=== PATIENT | female | born 1975 | race Caucasian/White ===

== ENCOUNTER 2024-12-21 08:49 | Outpatient (CLI) | payer BC, SELFPAY ==
--- OUTSIDE RECORDS SUMMARY | 2024-12-21 09:06 | XMS_ITS | Clinical Summary ---
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 Name Role Phone Sammy Garcia MD Primary Care Provider [phone] Allergies Active Allergy Reactions Criticality Noted Date Comments Codeine Nausea and Vomiting 01/12/2020 Medications HYDROcodone-acet aminophen (NORCO) 5-325 MG tablet Take 1 tablet by mouth every 6 hours as needed for severe pain 10 tablet 01/12/2020 Active Social History Tobacco Use Types Packs/Day Years Used Date Smoking Tobacco: Never Assessed Adolescent Education Answer Date Record ed Getting School Help Needed Not on file 04/06 Comments Unknown Sex and Gender Information Value Date Recorded Sex Assigned at Not on file Legal Sex Female 4:17 AM [employer] Gender Identity Not on file Sexual Orientation Not on file Last Filed Vital Signs Vital Sign Reading Time Taken Comments Blood Pressure 132/95 01/12/2020 9:30 AM CDT Pulse 76 01/12/2020 7:13 AM CDT Temperature 36.8 C (98.2 F) 01/12/2020 7:13 AM CDT Respiratory Rate 18 01/12/2020 7:13 AM CDT Oxygen Saturation 97% 01/12/2020 9:30 AM CDT Inhaled Oxygen Concentration - - Weight 72.6 kg (160 lb) 01/12/2020 7:13 AM CDT Height 172.7 cm (5' 8) 01/12/2020 7:13 AM CDT Body Mass Index 24.33 01/12/2020 7:13 AM CDT Plan of Treatment Not on file Care Teams Box Storage Worker Relationship Specialty Start Date End Date Sammy Garcia MD PCP - General Family Medicine - Sports Medicine 01/12/20
--- OUTSIDE RECORDS SUMMARY | 2024-12-21 09:06 | XMS_ITS | Clinical Summary ---
Author Organization [facility] Address [address] [place] [address] Care Team Providers Care Carpenter Repair Name Role Phone Sammy Garcia MD Primary Care Provider [phone] Allergies Active Allergy Reactions Criticality Noted Date Comments Codeine Nausea And Vomiting 05/12/2009 Medications gabapentin (NEURONTIN) 100 mg capsuleIndication s:Neck pain on right side Take 4 Capsules (400 mg) by mouth at bedtime. 360 Capsule 3 4 Active cyclobenzaprine (FLEXERIL) 10 mg tabletIndications :Neck pain on right side,Radicular pain in right arm TAKE 1 TABLET BY MOUTH UP TO 3 TIMES DAILY FOR SPASMS/BACK PAIN. USE MOSTLY AT NIGHT, MAY MAKE YOU DROWSY 30 Tablet 3 4 Active albuterol-ipratro pium (2.5-0.5 mg) in 3 mL NEBULIZATION solutionIndicatio ns:Acute cough Inhale 3 mL via a nebulizer every 6 hours if needed for Shortness Of Breath or Wheezing. 60 mL 3 5 Active NebulizerIndicati ons:Acute cough Nebulizer, disposable neb kit x 4, reuseable neb kit x 1, mask x 1, filters x 1. Frequency of use: daily; Medication: duoneb Length of need: 1 months 1 Each 5 Active Active Problems Problem Noted Date Diagnosed Date Chronic pain of right hip 11/11/2024 Overview (11/11/2024): October 2024: Ultrasound guided right hip injection. 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 Presbyopia 03/23/2020 Nutritional anemia 09/26/2015 ACNE 03/04/2003 Resolved Problems Problem Noted Date Diagnosed Date Resolved Date Nutritional anemia 09/25/2015 6 Generalized anxiety disorder 07/06/2010 01/29/2022 Major depressive disorder, s geovani episode, mild degree 07/06/2010 01/29/2022 INFECTION, UP RESPIRAT, BUNCHER MACHINE SITES, ACUTE NOS 06/20/2010 Cough 06/20/2010 Encounters Date Type Department Care Team Description 12/21/2024 Travel 11/30/2024 9:55 AM CDT Office Visit [facility] [address] [place] [address] Sammy Garcia MD Musculoskeletal Problem (Follow-up Post RIGHT Hip Injection done on 11/10/[address] Rosario/Does not feel the injection has helped at all) 11/30/2024 Telephone [facility] [address] [place] [address] Rubin Rosario MD Procedure (LAURA) 11/30/2024 Travel 11/10/2024 9:00 AM CDT Procedure Only [facility] [address] [place] [address] Rubin Rosario MD Procedure (US guided right hip joint injec... 11/10/2024 Travel 10/06/2024 Telephone [facility] [address] [place] [address] Abilio Ramos MD Results 10/05/2024 3:25 PM CDT Office Visit [facility] [address] [place] [address] Abilio Ramos MD URI (Now going on 3 weeks. Severe fatigue, throat feels tight, body feels wore out but she can't sleep) 10/05/2024 Travel 10/04/2024 Travel 09/28/2024 Telephone [facility] [address] [place] [address] Lv Bowen MD DME Supply 09/24/2024 9:00 AM CDT Office Visit [facility] [address] [place] [address] Lv Bowen MD URI (Dry cough, ongoing for over one week) 09/23/2024 Travel from Last 3 Months Immunizations Immunization Administration Dates Next Due Influenza,LAIV4 Live Intranasal (Flumist) 2010,05/31/2009 Tdap 06/12/2011 Family History Medical History Relation Name Comments Cancer-breast No Family History Relation Name Status Comments Brother 1 Alive Brother 2 Alive Daughter 1 Alive Daughter 2 Alive Father (Age 30 yrs) car ac cident Maternal Grandfather 1 Maternal Grandfather 2 Maternal Grandmother Mother Alive Paternal Grandfather Paternal Grandmother Sister Alive half Son 1 Alive Son 2 Alive Social History Tobacco Use Types Packs/Day Years Used Date Smoking Tobacco: Never Smokeless Tobacco: Never Tobacco Cessation:Counseling Given: Yes Alcohol Use Standard Drinks/Week Comments No 0 (1 standard drink = 0.6 oz pur e alcohol) sober since 2010. PHQ-2 Answer Date Recorded PHQ-2 TOTAL SCORE 0 01/29/2022 Social Connections Answer Date Recorded Do you often feel lonely or isolated from those around you? 0 05/07/2024 Financial Resource Strain Answer Date R ecorded Difficulty of Paying Living Expenses 3 05/07/2024 Difficulty of Paying Living Expenses Not on file 05/07/2024 Food Insecurity Answer Date Recorded Do you worry your food will run out before you are able to buy more? 1 05/07/2024 Transportation Needs Answer Date Record ed Does lack of transportation keep you from medica l appointments? 1 05/07/2024 Does lack of transportation keep you from work, meetings or getting things that you need? 1 05/07/2024 Housing Stability Answer Date Recorded What is your housing situation today? 1 05/07/2024 Utilities Answer Date Recorded Do you have trouble paying f or utilities (for example, heat, electricity, water, phone)? 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 Not on fi le Not on file Obstetrics History Para Term AB IAB SAB Ectopic Multiple Livin g Live Births 5 4 4 0 1 0 1 0 0 4 Date Outcome GA Total Labor Labor/2nd/3rd Weight Sex Type Anes PTL Zakia A1 A5 Name Clin Term Term Term Term SAB Last Filed Vital Signs Vital Sign Reading Time Taken Comments Blood Pressure 120/86 11/30/2024 9:49 AM CDT Pulse 80 11/30/2024 9:49 AM CDT Temperature 37 C (98.6 F) 11/10/2024 8:55 AM CDT Respiratory Rate 20 10/20/2012 9:54 AM CDT Oxygen Saturation 97% 11/30/2024 9:49 AM CDT Inhaled Oxygen Concentration - - Weight 86 kg (189 lb 11.2 oz) 11/30/2024 9:49 AM CDT Height 171.5 cm (5' 7.5) 05/07/2024 12:07 PM CS T Body Mass Index 29.27 05/07/2024 12:07 PM STEAMING CABINET TENDER Plan of Treatment Upcoming Encounters Date Type Department Care Team (Late st Contact Info) Description 01/11/2025 10:20 AM CDT Office Visit [facility] [address] [place] [address] Sammy Garcia MD [address] [place] [address] Health Maintenance Due Date Last Done Comments HIV for age 15-65 1988 Hepatitis B series for 19+ ( 1 of 3 - 19+ 3-dose series) 1992 Tetanus booster 06/12/2021 06/12/2011 Mammogram for age 45-75 11/21/2022 11/22/19 22, 10/20/2020, 10/12/2020 Depression screening for age 12+ 01/29/2023 01/29/2022, 11/15/2021, 06/05/2020, Additional history exists Pneumococcal series for age 50+ (1 of 1 - PCV) 2023 Zoster (shingles) series for age 50+ (1 of 2) 2023 COVID-19 vaccine series (1 - season) 2024 Influenza Vaccine (Season Ended) 2025 06/04/20 11, 05/31/2009 BMI (ht and wt on same day) for age 18+ 05/07/2025 05/07/2024, 02/11/2023, 01/29/2022, Additional history exists Fecal testing sDNA-FIT ([place] guard) for age 45-75 03/07/2026 03/07/2023 Lipids for age 45-75 01/29/2027 01/29/2022, 05/31/20 09 Pap test for age 21-65 01/29/2027 , 01/29/2022, 05/31/2009, Additional history exists Tdap Completed 06/12/2011 Hepatitis C screening for ag e 18-79 Completed 01/29/2022 Procedures Procedure Name Priority Date/Time Associated Diagnosis Comments AMB EPIDURAL STEROID INJECTION Routine 12/21/2024 7:58 AM CDT Chronic right hip pain Tear of right acetabular labrum, subsequent encounter Degeneration of intervertebral disc of lumbar region with discogenic back pain and lower extremity pain BEDSIDE US STUDY ARCHIVE Routine 11/10/2024 10:07 AM CDT Tear of right acetabular labrum, subsequent encounter Chronic right hip pain CBC WITH AUTO DIFFERENTIAL Routine 10/05/2024 3:53 PM CDT Fatigue, unspecified type TSH Routine 10/05/2024 3:53 PM CDT Fatigue, unspecified type COMP METABOLIC PANEL Routine 10/05/2024 3:53 PM CDT Fatigue, unspecified type VITAMIN B12 Routine 10/05/2024 3:53 PM CDT Fatigue, unspecified type VITAMIN D 25 (DEFICIENCY) Routine 10/05/2024 3:53 PM CDT Vitamin D deficiency C-REACTIVE PROTEIN Routine 10/05/2024 3: 53 PM CDT Fever, unspecified fever cause HEMOGLOBIN A1C Routine 10/05/2024 3:53 PM CDT Fatigue, unspecified type Blurry vision, bilateral SDNA-FIT EXTERNAL (COLOGUARD) Routine 03/07/2023 9:42 AM CDT Screen for colon cancer ANTI HCV Routine 01/29/2022 10:25 AM CDT Need for hepatitis C screening test LIPID PANEL W REFLEX MEASURED LDL Routine 01/29/2022 10:25 AM CDT Screening for lipid disorders GRANITE CUTTER THIN PREP PAP SCREEN IMAGED Routine 01/29/2022 10:14 AM CDT Pap smear for cervical cancer screening XR MAMMO BILAT SCREENING Routine 11/21/2021 11:48 AM CDT Encounter for screening mammogram for malignant neoplasm of breast from Last 3 Months or Most Recently Relevant to Health Maintenance Results * BEDSIDE US STUDY ARCHIVE (11/10/2024 10:07 AM CDT) Narrative Holly Sánchez R.T. (ARRT) - 11/10/2024 10:07 AM CDT The patient was seen for ultrasound guided injection by Dr. Rubin Rosario. Ultrasound was not used for diagnostic purposes, but to guide the needle placement and document the position of the injection. See patient's EPIC encounter for the detail of the procedure; see OSCAR for saved images of the injection. us Rubin Rosario MD PROCEDURE ORD Final Resu lt * (ABNORMAL) HEMOGLOBIN A1C (10/05/2024 3:53 PM CDT) HEMOGLOBIN A1C 5.7(H) <5.7 % of total Hgb [email or web address] Comment: For someone without known diabetes, a hemoglobin A1c value between 5.7% and 6.4% is consistent with prediabetes and should be confirmed with a follow-up test. For someone with known diabetes, a value <7% indicates that their diabetes is well controlled. A1c targets should be individualized based on duration of diabetes, age, comorbid conditions, and other considerations. This assay result is consistent with an increased risk of diabetes. Currently, no consensus exists regarding use of hemoglobin A1c for diagnosis of diabetes for children. Blood BLOOD SPECIMEN / Unknown 10/05/2024 3:53 PM CDT 10/05/2024 3:54 PM CDT us Abilio Ramos MD CHEMISTRY Final Resul t [employer] [facility] [address] [place] [address], [email or web address] [address] * VITAMIN D 25 (DEFICIENCY) (10/05/2024 3:53 PM CDT) VITAMIN D,25-OH,TOTAL,IA 57 30 - 100 ng/mL [email or web address] Comment: Vitamin D Status 25-OH Vitamin D: Deficiency: <20 ng/mL Insufficiency: 20 - 29 ng/mL Optimal: > or = 30 ng/mL For 25-OH Vitamin D testing on patients on D2-supplementation and patients for whom quantitation of D2 and D3 fractions is required, the QuestAssureD(TM) 25-OH VIT D, (D2,D3), LC/MS/MS is recommended: order code [id number] (patients >2yrs). See Note 1 Note 1 For additional information, please refer to http://education.Food.ee/faq/ZZD180 (This link is being provided for informational/ educational purposes only.) Blood BLOOD SPECIMEN / Unknown 10/05/2024 3:53 PM CDT 10/05/2024 3:54 PM CDT Abilio Ramos MD SEND OUTS Final Resul t [employer] [facility] [address] [place] [address], [place] [phone] [facility] [address] [place] [address] * TSH (10/05/2024 3:53 PM CDT) TSH 1.52 mIU/L [facility] Comment: Reference Range > or = 20 Years 0.40-4.50 Ranges First trimester 0.26-2.66 Second trimester 0.55-2.73 Third trimester 0.43-2.91 Blood BLOOD SPECIMEN / Unknown 10/05/2024 3:53 PM CDT 10/05/2024 3:54 PM CDT us Abilio Ramos MD CHEMISTRY Final Resul t Performing Organization Address City/[facility]/ZIP Co de Phone Number [employer] [facility] [address] [facility] [place] [address], [place] [phone] [facility] [address] [facility] [place] [address] * C-REACTIVE PROTEIN (10/05/2024 3:53 PM CDT) C-REACTIVE PROTEIN <3.0 <8.0 mg/L [email or web address] Blood BLOOD SPECIMEN / Unknown 10/05/2024 3:53 PM CDT 10/05/2024 3:54 PM CDT Abilio Ramos MD CHEMISTRY Final Resul t [employer] [facility] [address] [place] [address], [place] [phone] [email or web address] [address] [place] [address] * CBC AND DIFFERENTIAL (10/05/2024 3:53 PM CDT) [facility] WHITE BLOOD CELL COUNT 6.9 3.8 - 10.8 Thousand/u L [facility] RED BLOOD CELL COUNT 4.62 3.80 - 5.10 Million/uL [facility] HEMOGLOBIN 13.3 11.7 - 15.5 g/dL [facility] HEMATOCRIT 40.7 35.0 - 45.0 % [facility] MCV 88.1 80.0 - 100.0 fL [facility] MCH 28.8 27.0 - 33.0 pg [facility] MCHC 32.7 32.0 - 36.0 g/dL [facility] Comment: For adults, a slight decrease in the calculated MCHC value (in the range of 30 to 32 g/dL) is most likely not clinically significant; however, it should be interpreted with caution in correlation with other red cell parameters and the patient's clinical condition. RDW 12.7 11.0 - 15.0 % [facility] PLATELET COUNT 293 140 - 400 Thousand/u L [facility] MPV 11.1 7.5 - 12.5 fL [facility] ABSOLUTE NEUTROPHILS 3,540 1,500 - 7,800 cells/uL [facility] ABSOLUTE LYMPHOCYTES 2,560 850 - 3,900 cells/uL [facility] ABSOLUTE MONOCYTES 538 200 - 950 cells/uL [facility] ABSOLUTE EOSINOPHILS 214 15 - 500 cells/uL [facility] ABSOLUTE BASOPHILS 48 0 - 200 cells/uL [facility] NEUTROPHILS 51.3 % [facility] LYMPHOCYTES 37.1 % [facility] MONOCYTES 7.8 % [facility] EOSINOPHILS 3.1 % [facility] BASOPHILS 0.7 % [facility] Blood BLOOD SPECIMEN / Unknown 10/05/2024 3:53 PM CDT 10/05/2024 3:54 PM CDT us Abilio Ramos MD HEMATOLOGY Final Resul t [facility] [address] [place] [address], [place] [phone] [facility] [address] [place] [address] * VITAMIN B12 (10/05/2024 3:53 PM CDT) Pathologist [facility] VITAMIN B12 724 200 - 1,100 pg/mL [facility] Blood BLOOD SPECIMEN / Unknown 10/05/2024 3:53 PM CDT 10/05/2024 3:54 PM CDT Abilio Ramos MD CHEMISTRY Final Resul t Performing Organization Address [facility]/ZIP Co de Phone Number [facility] [place] [address] [place] [address], [place] [phone] [facility] [address] [place] [address] * COMP METABOLIC PANEL (10/05/2024 3:53 PM CDT) Pathologist [facility] GLUCOSE 85 65 - 99 mg/dL [facility] Comment: Fasting reference interval UREA NITROGEN (BUN) 13 7 - 25 mg/dL [facility] CREATININE 0.89 0.50 - 1.03 mg/dL [facility] EGFR 78 > OR = 60 mL/min/1. 73m2 [facility] BUN/CREATININE RATIO SEE NOTE: 6 - 22 (calc) [facility] Comment: Not Reported: BUN and Creatinine are within reference range. SODIUM 138 135 - 146 mmol/L [facility] POTASSIUM 4.7 3.5 - 5.3 mmol/L [facility] CHLORIDE 101 98 - 110 mmol/L [facility] CARBON DIOXIDE 31 20 - 32 mmol/L [facility] CALCIUM 9.0 8.6 - 10.4 mg/dL [facility] PROTEIN, TOTAL 7.0 6.1 - 8.1 g/dL [facility] ALBUMIN 4.4 3.6 - 5.1 g/dL [facility] GLOBULIN 2.6 1.9 - 3.7 g/dL (calc) [facility] ALBUMIN/GLOBULIN RATIO 1.7 1.0 - 2.5 (calc) [facility] BILIRUBIN, TOTAL 0.3 0.2 - 1.2 mg/dL [facility] ALKALINE PHOSPHATASE 57 37 - 153 U/L [facility] AST 17 10 - 35 U/L [facility] ALT 20 6 - 29 U/L [facility] Blood BLOOD SPECIMEN / Unknown 10/05/2024 3:53 PM CDT 10/05/2024 3:54 PM CDT us Abilio Ramos MD CHEMISTRY Final Resul t [employer] [facility] [address] [place] [address], [facility] [address] * SDNA-FIT EXTERNAL (COLOGUARD) (03/07/2023 9:42 AM CDT) NONINV COLON CA DNA+OCC BLD SCRN STL-IMP Negative Negative 03/12/2023 4:57 PM CDT [facility] (CLIA #:[id number]) Comment: NEGATIVE TEST RESULT. A negative Cologuard result indicates a low likelihood that a colorectal cancer (CRC) or advanced adenoma (adenomatous polyps with more advanced pre-malignant features) is present. The chance that a person with a negative Cologuard test has a colorectal cancer is less than 1 in 1500 (negative predictive value >99.9%) or has an advanced adenoma is less than 5.3% (negative predictive value 94.7%). These data are based on a prospective cross-sectional study of 10,000 individuals at average risk for colorectal cancer who were screened with both Cologuard and colonoscopy. (Vidal Adamson al, N Engl J Med 2014;370(14):8568-9380) The normal value (reference range) for this assay is negative. COLOGUARD RE-SCREENING RECOMMENDATION: Periodic colorectal cancer screening is an important part of preventive healthcare for asymptomatic individuals at average risk for colorectal cancer. Following a negative Cologuard result, the [place] [employer] Society and U.S. Multi-Society Task Force screening guidelines recommend a Cologuard re-screening interval of 3 years. References: [place] [employer] Guideline for Colorectal Cancer Screening: https://www.cancer.org/cancer/fossh-pbutgb-denerc/veewxgxwo-mumavkvnx-mlwvijg/ac s-rec ommendations.html.; Navdeep DK, Mendez CR, Michael CraigK, Colorectal Cancer Screening: Recommendations for Physicians and Patients from the U.S. Multi-Society Task Force on Colorectal Cancer Screening , Am J Gastroenterology 2017; 112:3660-3974. TEST DESCRIPTION: Composite algorithmic analysis of stool DNA-biomarkers with hemoglobin immunoassay. Quantitative values of individual biomarkers are not reportable and are not associated with individual biomarker result reference ranges. Cologuard is intended for colorectal cancer screening of adults of either sex, 45 years or older, who are at average-risk for colorectal cancer (CRC). Cologuard has been approved for use by the U.S. FDA. The performance of Cologuard was established in a cross sectional study of average-risk adults aged 50-84. Cologuard performance in patients ages 45 to 49 years was estimated by sub-group analysis of near-age groups. Colonoscopies performed for a positive result may find as the most clinically significant lesion: colorectal cancer [4.0%], advanced adenoma (including sessile serrated polyps greater than or equal to 1cm diameter) [20%] or non- advanced adenoma [31%]; or no colorectal neoplasia [45%]. These estimates are derived from a prospective cross-sectional screening study of 10,000 individuals at average risk for colorectal cancer who were screened with both Cologuard and colonoscopy. (Vidal Yap, N Engl J Med 2014;370(14):1982-3932.) Cologuard may produce a false negative or false positive result (no colorectal cancer or precancerous polyp present at colonoscopy follow up). A negative Cologuard test result does not guarantee the absence of CRC or advanced adenoma (pre-cancer). The current Cologuard screening interval is every 3 years. ([place] [employer] Society and U.S. Multi-Society Task Force). Cologuard performance data in a 10,000 patient pivotal study using colonoscopy as the reference method can be accessed at the following location: www.Ensocare/results. Additional description of the Cologuard test process, warnings and precautions can be found at www.Glance Labsrd.com. Stool specimen (specimen) (Rectum) 03/07/2023 9:42 AM CDT 03/08/2023 2:51 PM CDT Leeanne Ramsey NP URINE Final Res ult [facility] (CLIA #:[id number]) [address] [place] [address], * (ABNORMAL) LIPID PANEL W REFLEX MEASURED LDL [[id number]] (01/29/2022 10:25 AM CDT) CHOLESTEROL,TOTAL 240(H) 100 - 199 mg/dL 01/29/2022 6:35 PM CDT [facility] TRIGLYCERIDES 108 <150 mg/dL 01/29/2022 6:35 PM CDT [facility] HDL CHOLESTEROL 67 >40 mg/dL 6:35 PM CDT [facility] NON-HDL CHOLESTEROL 173(H) <145 mg/dl 01/29/2022 6:35 PM CDT [facility] CHOL/HDL RATIO 3.58 <4.50 01/29/2022 6:35 PM CDT [facility] LDL CHOLESTEROL 151(H) <=130 mg/dL 01/29/2022 6:35 PM CDT [facility] VLDL CHOLESTEROL 22 <=30 mg/dL 01/29/2022 6:35 PM CDT [facility] TRA LABORATORY PROVIDER ORDERED STATUS RANDOM 01/29/2022 6:35 PM CDT [facility] Blood BLOOD SPECIMEN / Unknown Venipuncture / Unknown 01/29/2022 10:25 AM CDT 01/29/2022 10:35 AM CDT Leeanne Ramsey LEGAL EXECUTIVE ASSISTANT CHEMISTRY Final Res ult [facility] [address] [place] [address], [place] * ANTI HCV (01/29/2022 10:25 AM CDT) HEPATITIS C ANTIBODY Non-React corey Non-React corey 01/29/2022 8:24 PM CDT [facility] Comment:Antibodies to HCV no t detected; does not exclude the possibility of exposure to HCV. Blood BLOOD SPECIMEN / Unknown Venipuncture / Unknown 01/29/2022 10:25 AM CDT 01/29/2022 10:35 AM CDT Leeanne Ramsey LEGAL EXECUTIVE ASSISTANT SEND OUTS Final Res ult [facility] [address] [place] [address], [place] * GRANITE CUTTER THIN PREP PAP SCREEN IMAGED (01/29/2022 10:14 AM CDT) Case Report Gynecologic Cytology Report Case: [id number] Authorizing Provider: Leeanne Ramsey NP Collected: 01/29/2022 1014 Ordering Location: [facility] Received: 01/29/2022 1049 Clinic First Screen: Lashon Mccauley Specimen: GRANITE CUTTER ThinPrep Vial Screening, Cervical 02/12/2022 12:36 PM CDT [facility] ENTRAL LABORATORY INTERPRETATION/ RESULT NEGATIVE FOR INTRAEPITHELIAL LESION OR MALIGNANCY (NIL) (none) 02/12/2022 12:36 PM CDT [facility] at 1236 CDT SPECIMEN ADEQUACY Satisfactory for evaluation Endocervical component present 02/12/2022 12:36 PM CDT [facility] HPV REQUEST HPV and PAP 02/12/2022 12:36 PM CDT [facility] Date of LMP 01/21/22 02/12/2022 12:36 PM CDT [facility] Last Pap Date 05/31/09 02/12/2022 12:36 PM CDT [facility] Last Pap Result NIL 12:36 PM CDT [facility] Abnormal Pap or [place] Bx in last 5 years No 02/12/2022 12:36 PM CDT [facility] Menstrual Status Regular Periods 02/12/2022 12:36 PM CDT [facility] [place] Bx Done Today No 02/12/2022 12:36 PM CDT [facility] Additional Information None given 02/12/2022 12:36 PM CDT [facility] Comment: Cytology is screened at [facility] - [address], [place] [address] and [facility] - [address], [place] [address] and [facility] - [address] [place] [address] Interpreted at [facility] - [address], [place] [address] Automated Review Successful 02/12/2022 12:36 PM CDT [facility] Comment:Specimen processed s uccessfully by automated electric cell tender device, [employer] System, [employer] ANCILLARY TESTING GRANITE CUTTER HPV Ordered, Please see separate report 02/12/2022 12:36 PM CDT [facility] Note The pap test is a screening technique, not a diagnostic procedure. It is used primarily to screen for squamous cancers and precursor lesions. Published studies have shown that it is subject to both false negative and false positive results. The pap test should not be used as the sole means to diagnose or exclude pre-malignant and malignant lesions. 02/12/2022 12:36 PM CDT [facility]-C ENTRAL LABORATORY Other (Cervical) Non-Blood / Unknown 01/29/2022 10:14 AM CDT 01/29/2022 10:49 AM CDT Leeanne Ramsey NP PATHOLOGY/CYTOLOGY Final Result [facility]-CENTRAL LABORATORY [address] [place] [address], [place] * XR MAMMO BILAT SCREENING (11/21/2021 11:48 AM CDT) Anatomical Region Laterality Modality BREASTS, Breast Left, Breast Right Bilateral Mammography Impressions 11/21/2021 3:47 PM CDT There is no radiographic evidence for malignancy. Recommend annual mammograms. MAMMOGRAM ASSESSMENT: ACR 1 Negative PATIENTS: You will also receive a letter with your examination results in an easy to read format. If you have questions about your results, please contact your referring provider. Narrative 11/21/2021 3:47 PM CDT For Patients: As a result of the Century Cures Act, medical imaging exams and procedure reports are released immediately into your electronic medical record. You may view this report before your referring provider. If you have questions, please contact your health care provider. XR MAMMO BILAT SCREENING [[id number]] CLINICAL HISTORY: This is an asymptomatic 46 y.o. patient. INDICATION FOR EXAM: Mammogram Screening. TECHNIQUE: CC & MLO views were obtained. This study was evaluated with the assistance of Computer-Aided Detection. COMPARISON FILM: Yes 10/12/20 Concard FINDINGS: The breasts have scattered areas of fibroglandular density. There are no dominant masses, suspicious micro calcifications or areas of architectural distortion. Sammy Garcia MD MAMMO Final Res ult from Last 3 Months or Most Recently Relevant to Health Maintenance Insurance [facility] Care Teams Carpenter Repair Relationship Specialty Start Date End Date Sammy Garcia MD [address] [place] [address] PCP - General Family Practice 03/28/20
--- OUTSIDE RECORDS SUMMARY | 2024-12-22 00:45 | XMS_ITS | Clinical Summary ---
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
--- OUTSIDE RECORDS SUMMARY | 2024-12-22 00:46 | XMS_ITS | Clinical Summary ---
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 06/20/2010 Cough 06/20/2010 Encounters Date Type Department Care Team Description 12/21/2024 9:00 AM CDT Office Visit [facility] [address] [place] [address] Rubin Rosario MD Procedure (L4-5 ILESI) 12/21/2024 Travel 11/30/2024 9:55 AM CDT Office Visit [facility] [address] [place] [address] Sammy Garcia MD Musculoskeletal Problem (Follow-up Post RIGHT Hip Injection done on 11/10/[address] Rosario/Does not feel the injection has helped at all) 11/30/2024 Telephone [facility] [address] [place] [address] Rubin Rosario MD Procedure (LAURA) 11/30/2024 Travel 11/10/2024 9:00 AM CDT Procedure Only [facility] [address] [place] [address] Rubin Rosario MD Procedure (US guided right hip joint injec... 11/10/2024 Travel 10/06/2024 Telephone [facility] [address] [place] [address] Abilio Ramos MD Results 10/05/2024 3:25 PM CDT Office Visit [facility] [address] [place] [address] Abilio Ramos MD URI (Now going on 3 weeks. 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 Plan of Treatment Upcoming Encounters Date Type Department Care Team (Late st Contact Info) Description 01/11/2025 10:20 AM CDT Office Visit [facility] [address] [facility] [place] [id number] Sammy Garcia MD [address] [place] [id number] Health Maintenance Due Date Last Done Comments [...] (1 of 2) 2023 COVID-19 vaccine series ( - season) 2024 Influenza Vaccine (Season Ended) 2025 06/04/20 11, 05/31/2009 BMI (ht and wt on same day) for age 18+ 05/07/2025 05/07/2024, 02/11/2023, 01/29/2022, Additional history exists Fecal testing sDNA-FIT ([place] guard) for age 45-75 03/07/2026 03/07/2023 Lipids [...] 10:25 AM CDT Screening for lipid disorders METROLOGY MANAGER THIN PREP PAP SCREEN IMAGED Routine 01/29/2022 [...] OSCAR for saved images of the injection. Rubin Rosario MD PROCEDURE ORD Final Resu lt * (ABNORMAL) HEMOGLOBIN A1C (10/05/2024 3:53 PM CDT) HEMOGLOBIN A1C 5.7(H) <5.7 % of total Hgb [employer] Comment: For someone without known diabetes, [...] Abilio Ramos MD CHEMISTRY Final Resul t [facility] [address], [employer] [address] * VITAMIN D 25 (DEFICIENCY) (10/05/2024 3:53 PM CDT) VITAMIN D,25-OH,TOTAL,IA 57 30 - 100 ng/mL [employer] Comment: Vitamin D Status 25-OH Vitamin D: Deficiency: <20 ng/mL Insufficiency: 20 - 29 ng/mL Optimal: > or = 30 ng/mL For 25-OH Vitamin D testing on patients on D2-supplementation and patients for whom quantitation of D2 and D3 fractions is required, the QuestAssureD(TM) 25-OH VIT D, (D2,D3), LC/MS/MS is recommended: order code 11979 (patients >2yrs). See Note 1 Note 1 For additional information, please refer to http://education.ULURU.apartum/faq/SNS850 (This link is being provided for informational/ educational purposes only.) Blood BLOOD SPECIMEN / Unknown 10/05/2024 3:53 PM CDT 10/05/2024 3:54 PM CDT us Abilio Ramos MD SEND OUTS Final Resul t Performing Organization Address [facility] Co de Phone Number navabi [facility] [address] [place] [address], [facility] [address] [place] [address] * TSH (10/05/2024 3:53 PM CDT) TSH 1.52 mIU/L [employer] Comment: Reference Range > or = 20 Years 0.40-4.50 Ranges First trimester 0.26-2.66 Second trimester 0.55-2.73 Third trimester 0.43-2.91 Blood BLOOD SPECIMEN / Unknown 10/05/2024 3:53 PM CDT 10/05/2024 3:54 PM CDT us Abilio Ramos MD CHEMISTRY Final Resul t Performing Organization Address [facility] Co de Phone Number navabi [facility] [address] [facility] [place] [address], [facility] [address] [place] [address] * C-REACTIVE PROTEIN (10/05/2024 3:53 PM CDT) C-REACTIVE PROTEIN <3.0 <8.0 mg/L [facility] Blood BLOOD SPECIMEN / Unknown 10/05/2024 3:53 PM CDT 10/05/2024 3:54 PM CDT us Abilio Ramos MD CHEMISTRY Final Resul t [facility] [address] [place] [address], [facility] [address] [place] [address] * CBC AND DIFFERENTIAL (10/05/2024 3:53 PM CDT) Pathologist [facility] WHITE BLOOD CELL COUNT 6.9 3.8 - [...] 10/05/2024 3:54 PM CDT Abilio Ramos MD HEMATOLOGY Final Resul t Performing Organization Address City/[facility]/ZIP Co de Phone Number navabi [facility] [address] [place] [address], [place] [phone] [facility] [address] [place] [address] * VITAMIN B12 (10/05/2024 3:53 PM CDT) Pathologist [facility] VITAMIN B12 724 200 - 1,100 pg/mL [employer] [facility] Blood BLOOD SPECIMEN / Unknown 10/05/2024 3:53 PM CDT 10/05/2024 3:54 PM CDT Abilio Ramos MD CHEMISTRY Final Resul t Performing Organization Address City/[facility] Co de Phone Number navabi [address] [address], [facility] [address] [place] [phone] * COMP METABOLIC PANEL (10/05/2024 3:53 PM CDT) GLUCOSE 85 65 - 99 mg/dL [facility] Comment: Fasting reference interval UREA NITROGEN (BUN) 13 7 - 25 mg/dL [facility] CREATININE 0.89 0.50 - 1.03 mg/dL [facility] EGFR 78 > OR = 60 mL/min/1. 73m2 [facility] BUN/CREATININE RATIO SEE NOTE: (calc) [facility] Comment: Not [...] Abilio Ramos MD CHEMISTRY Final Resul t nav[facility] [address] [place] [address], [facility] [address] [place] [address] * SDNA-FIT EXTERNAL (COLOGUARD) (03/07/2023 9:42 AM CDT) NONINV COLON CA DNA+OCC BLD SCRN STL-IMP Negative Negative 03/12/2023 4:57 PM CDT [facility] (CLIA #:[id number]) Comment: NEGATIVE TEST RESULT. A negative Cologuard [...] (Vidal Adamson al, N Engl J Med 2014;370(14):4947-2236) The normal value (reference range) for this assay is negative. COLOGUARD RE-SCREENING RECOMMENDATION: Periodic colorectal cancer screening is an important part of preventive healthcare for asymptomatic individuals at average risk for colorectal cancer. Following a negative Cologuard result, the Stateless Cancer Society and U.S. Multi-Society Task Force screening guidelines recommend a Cologuard re-screening interval of 3 years. References: Stateless Cancer Society Guideline for Colorectal Cancer Screening: https://www.cancer.org/cancer/tmugs-wzbdfa-rgwdxk/tfzqmnenf-ipaupfvdv-lxnhagg/ac s-rec ommendations.html.; Navdeep DK, Mendez CR, Michael CraigK, Colorectal Cancer Screening: Recommendations for Physicians and Patients from the U.S. Multi-Society Task Force on Colorectal Cancer Screening , Am J Gastroenterology 2017; 112:6139-7782. TEST DESCRIPTION: Composite algorithmic analysis of stool [...] (Vidal Adamson al, N Engl J Med 2014;370(14):3710-5698.) Cologuard may produce a false negative or false positive result (no colorectal cancer or precancerous polyp present at colonoscopy follow up). A negative Cologuard test result does not guarantee the absence of CRC or advanced adenoma (pre-cancer). The current Cologuard screening interval is every 3 years. (Stateless Cancer Society and U.S. Multi-Society Task Force). Cologuard performance data in a 10,000 patient pivotal study using colonoscopy as the reference method can be accessed at the following location: www.Authy/results. Additional description of the Cologuard test process, warnings and precautions can be found at www.OilAndGasRecruiterrd.com. Stool specimen (specimen) (Rectum) 03/07/2023 9:42 AM CDT 03/08/2023 2:51 PM CDT Leeanne Ramsey NP URINE Final Res ult [facility] (CLIA #:[id number]) [address] [place] [address], * (ABNORMAL) LIPID PANEL W REFLEX MEASURED LDL [[id number]] (01/29/2022 10:25 AM CDT) CHOLESTEROL,TOTAL 240(H) 100 - 199 mg/dL 01/29/2022 6:35 PM CDT [facility] TRIGLYCERIDES 108 <150 mg/dL 01/29/2022 6:35 PM CDT [facility] HDL CHOLESTEROL 67 >40 mg/dL 6:35 PM CDT [facility] NON-HDL CHOLESTEROL 173(H) <145 mg/dl 01/29/2022 6:35 PM CDT [facility] CHOL/HDL RATIO 3.58 <4.50 01/29/2022 6:35 PM CDT [facility] LDL CHOLESTEROL 151(H) <=130 mg/dL 01/29/2022 6:35 PM CDT [facility] VLDL CHOLESTEROL 22 <=30 mg/dL 01/29/2022 6:35 PM CDT [facility] PROVIDER ORDERED STATUS RANDOM 01/29/2022 6:35 PM CDT [facility] Blood BLOOD SPECIMEN / Unknown Venipuncture / Unknown 01/29/2022 10:25 AM CDT 01/29/2022 10:35 AM CDT Leeanne Ramsey TESTER REGULATOR CHEMISTRY Final Res ult Performing Organization Address City/[facility]/ZIP Co de Phone Number [facility] [address] [place] [address], [place] * ANTI HCV (01/29/2022 10:25 AM CDT) HEPATITIS C ANTIBODY Non-React corey Non-React corey 01/29/2022 8:24 PM CDT [facility] Comment:Antibodies to HCV no t detected; does not exclude the possibility of exposure to HCV. Blood BLOOD SPECIMEN / Unknown Venipuncture / Unknown 01/29/2022 10:25 AM CDT 01/29/2022 10:35 AM CDT Leeanne Ramsey TESTER REGULATOR SEND OUTS Final Res ult [facility] [address] [place] [address], * METROLOGY MANAGER THIN PREP PAP SCREEN IMAGED (01/29/2022 10:14 AM CDT) Case Report Gynecologic Cytology Report Case: [id number] Authorizing Provider: Leeanne Ramsey NP Collected: 01/29/2022 1014 Ordering Location: [facility] Received: 01/29/2022 1049 Clinic First Screen: Lashon Mccauley Specimen: METROLOGY MANAGER ThinPrep Vial Screening, Cervical 02/12/2022 12:36 PM CDT [facility] [employer] [facility] ENTRAL LABORATORY INTERPRETATION/ RESULT NEGATIVE FOR INTRAEPITHELIAL LESION OR MALIGNANCY (NIL) (none) 02/12/2022 12:36 PM CDT [facility] ENTRAL LABORATORY at 1236 CDT SPECIMEN ADEQUACY Satisfactory for evaluation Endocervical component present 02/12/2022 12:36 PM CDT [facility] [employer] [facility] EN[facility] LAB[facility]ORY HPV REQUEST HPV and PAP 02/12/2022 12:36 PM CDT [facility] Date of LMP 01/21/22 02/12/2022 12:36 PM CDT [facility] Last Pap Date 05/31/09 02/12/2022 12:36 PM CDT [facility] Last Pap Result NIL 12:36 PM CDT [facility] Abnormal Pap or [place] Bx in last 5 years No 02/12/2022 12:36 PM CDT [facility] Menstrual Status Regular Periods 02/12/2022 12:36 PM CDT [facility] [place] Bx Done Today No 02/12/2022 12:36 PM CDT [facility] Additional Information None given 02/12/2022 12:36 PM CDT [facility] Comment: Cytology is screened at [facility] - [address], [place] [address] and [facility] - [address] [place] [address] and [facility] - [address] [place] [address] Interpreted at [facility] - [address], [place] [address] Automated Review Successful 02/12/2022 12:36 PM CDT [facility] Comment:Specimen processed s uccessfully by automated postbed stitcher device, ThinPrep Imaging System, [employer] ANCILLARY TESTING METROLOGY MANAGER HPV Ordered, Please see separate report 02/12/2022 12:36 PM CDT [facility]AL LABORATORY Note The pap test is a [...] and malignant lesions. 02/12/2022 12:36 PM CDT [facility] [employer] LABORATORY-[facility] ENTRPA LABORATORY Other (Cervical) Non-Blood / Unknown 01/29/2022 10:14 AM CDT 01/29/2022 10:49 AM CDT Leeanne Ramsey NP PATHOLOGY/CYTOLOGY Final Result [facility] [employer] LABORATORY-CENTRAL LABORATORY [address] [place] [address], [place] * XR MAMMO BILAT SCREENING (11/21/2021 [...] For Patients: As a result of the 21st Century Cures Act, medical imaging exams and procedure reports are released immediately into your electronic medical record. You may view this report before your referring provider. If you have questions, please contact your health care provider. XR MAMMO BILAT SCREENING [[id number]] CLINICAL HISTORY: This is an asymptomatic 46 y.o. patient. INDICATION FOR EXAM: Mammogram Screening. TECHNIQUE: CC & MLO views were obtained. This study was evaluated with the assistance of Computer-Aided Detection. COMPARISON FILM: Yes 10/12/20 [place]we[place]ie FINDINGS: The breasts have scattered areas of fibroglandular density. There are no dominant masses, suspicious micro calcifications or areas of architectural distortion. us Sammy Garcia MD MAMMO Final Res ult from Last 3 Months or Most Recently Relevant to Health Maintenance Insurance ON LICENSE OF [facility] Care Teams Audiovisual Lead Technician Relationship Specialty Start Date End Date Sammy Garcia MD [facility] [place] [place] [address] PCP - General Family Practice 03/28/20
== END 2024-12-21 08:50 | disposition home or self-care (01) ==
PROVIDERS: PCP Family Medicine; Visit Provider Family Medicine
DX: M54.16 Radiculopathy, lumbar region (principal); M51.369 Other intervertebral disc degeneration, lumbar region without mention of lumbar back pain or lower extremity pain
CPT/HCPCS: 62323; J0702; Q9966